=== PATIENT | male | born 1960 | race Caucasian/White ===

== ENCOUNTER 2021-08-28 21:19 | Emergency (ER) | payer OTHER ==
[~2021-08-28] VITALS: Ht 193 cm; Wt 127.3 kg
[2021-08-28] MEDS ORDERED: KETOROLAC TROMETHAMINE 10 MG TABLET PO ONE (22:00)
[2021-08-28 23:10] VITALS: BP 134/78
== END 2021-08-28 23:15 | disposition home or self-care (01) ==
LOC: EMS 21:21
DX: S63.636A Sprain of interphalangeal joint of right little finger, initial encounter (principal); E11.9 Type 2 diabetes mellitus without complications; E78.00 Pure hypercholesterolemia, unspecified; I10 Essential (primary) hypertension; E78.5 Hyperlipidemia, unspecified; Z87.19 Personal history of other diseases of the digestive system; X50.1XXA Overexertion from prolonged static or awkward postures, initial encounter; Y93.89 Activity, other specified; Y92.89 Other specified places as the place of occurrence of the external cause; Y99.8 Other external cause status
CPT/HCPCS: 82962; 99283